=== PATIENT | female | born 1970 | race Caucasian/White ===

== ENCOUNTER → 2021-01-23 11:37 | Outpatient (CLI) | payer OTHER, SELFPAY ==
--- NOTE | ~2021-01-23 | XR_ITS ---
EXAMINATION: XR chest 2V DATE: 01/23/2021 12:04 INDICATION: Shortness of breath. Chest pain. TECHNIQUE: PA and lateral views of the chest were obtained. COMPARISON: Chest radiograph dated 02/09/2019 FINDINGS: Lungs remain hyperexpanded but clear with no focal airspace opacities, pulmonary edema, pleural effus ion or pneumothorax. The cardiomediastinal silhouette is normal. Bilateral breast implants. Mild thor acic spondylosis. IMPRESSION: 1. Appearance suggestive but not diagnostic of COPD. No acute cardiopulmonary disease. Reviewed, dictated and finalized at location B. [facility] IMPRESSION: 1. Appearance suggestive but not diagnostic of COPD. No acute cardiopulmonary d isease.
== END ==
PROVIDERS: PCP Family Medicine Adolescent Medicine; Visit Provider Physician Assistant
DX: R06.02 Shortness of breath (principal); R07.9 Chest pain, unspecified; R91.8 Other nonspecific abnormal finding of lung field
CPT/HCPCS: 71046

== ENCOUNTER → 2021-07-03 10:26 | Outpatient (CLI) | payer OTHER, SELFPAY ==
--- NOTE | ~2021-07-03 | MM_ITS ---
EXAMINATION: MM scrn jannet implant BI w jack HISTORY: Screening mammogram, family history of breast cancer in her mother. TECHNIQUE: Craniocaudal and mediolateral oblique 3-D tomosynthesis images with implant displacement a nd synthetic 2-D images were generated. Craniocaudal and mediolateral oblique views of the breasts wi thout implant displacement were obtained using full field digital mammography. CAD analysis was submi tted and interpreted. COMPARISON: 09/05/2018, 04/16/2016 BREAST PARENCHYMAL COMPOSITION: There are scattered areas of fibroglandular density. FINDINGS: There is no evidence of suspicious mass, calcification, or architectural distortion to sugg est malignancy in either breast. There has been no suspicious interval change. IMPRESSION: 1. No mammographic evidence of malignancy. 2. Recommend routine screening mammography in one year. BI-RADS Category 1: Negative Reviewed, dictated and finalized at location A.
== END ==
PROVIDERS: PCP Family Medicine Adolescent Medicine; Visit Provider Obstetrics & Gynecology
DX: Z12.31 Encounter for screening mammogram for malignant neoplasm of breast (principal)
CPT/HCPCS: 77063; 77067

== ENCOUNTER → 2021-12-30 10:39 | Outpatient (CLI) | payer OTHER, SELFPAY ==
--- NOTE | ~2021-12-30 | CT_ITS ---
EXAMINATION: CTA chest PE protocol DATE: 12/30/2021 11:02 INDICATION: Dyspnea on exertion. TECHNIQUE: Computed tomography angiography (CTA) of the chest was performed with 100 mL Omnipaque-350 intravenous contrast timed to evaluate the pulmonary arteries. Coronal maximum intensity projection 3D-reconstructions were created by the technologist. Automated exposure control and iterative reconst ruction technique were employed. The dose-length product was 149.01 mGy-cm. COMPARISON: Chest 2 views 01/23/2021 FINDINGS: There is severe emphysema. No pleural effusion. The heart size is normal. No pericardial ef fusion. There is no pulmonary embolus. Breast implants are noted. There is mild thoracic spondylosis. There is mild chronic anterior wedging of multiple midthoracic vertebral bodies. IMPRESSION: 1. No pulmonary embolus. 2. Severe emphysema. Reviewed, dictated and finalized at location A. 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
== END ==
PROVIDERS: PCP Family Medicine Adolescent Medicine; Visit Provider Physician Assistant
DX: R06.02 Shortness of breath (principal); J43.9 Emphysema, unspecified
CPT/HCPCS: 71275; Q9967

== ENCOUNTER 2023-08-27 10:10 | Outpatient (CLI) | payer OTHER, SELFPAY ==
--- NOTE | ~2023-08-27 | CT_ITS ---
CT Scan of the Chest without Contrast: Clinical Indication: COPD Technique: Contiguous sections were acquired throughout the chest without intravenous contrast. Dose reduction technique was used on this scan by utilizing automated exposure control and iterative recon struction technique. The dose-length product (DLP) was 63.13 mGy-cm. COMPARISON: 12/30/2021 Findings: There is no evidence of any significant mediastinal, hilar or axillary lymphadenopathy. The mediastin al soft tissues appear normal. There is no evidence of pleural or pericardial effusion. Advanced emphysema present. No pulmonary nodule or consolidation seen. No pneumothorax. Images through the upper abdomen reveal no abnormalities. Impression: Advanced emphysema. Reviewed, dictated and finalized at location . Impression: Advanced emphysema.
== END 2023-08-27 10:11 | disposition home or self-care (01) ==
LOC: ANHIMG 10:13
PROVIDERS: PCP Family Medicine Adolescent Medicine; Visit Provider Physician Assistant
DX: J43.9 Emphysema, unspecified (principal); Z87.09 Personal history of other diseases of the respiratory system
CPT/HCPCS: 71250

== ENCOUNTER 2024-01-07 12:44 | Outpatient (CLI) | payer OTHER, SELFPAY ==
--- NOTE | ~2024-01-07 | MM_ITS ---
EXAMINATION: MM scrn jannet implant BI w jack HISTORY: Screening mammogram, family history of breast cancer in her mother. TECHNIQUE: Craniocaudal and mediolateral oblique 3-D tomosynthesis images with implant displacement a nd synthetic 2-D images were generated. Craniocaudal and mediolateral oblique views of the breasts wi thout implant displacement were obtained using full field digital mammography. CAD analysis was submi tted and interpreted. COMPARISON: 07/03/2021, 09/05/2018 BREAST PARENCHYMAL COMPOSITION: There are scattered areas of fibroglandular density. FINDINGS: There is no evidence of suspicious mass, calcification, or architectural distortion to sugg est malignancy in either breast. There has been no suspicious interval change. IMPRESSION: No mammographic evidence of malignancy. Recommend routine screening mammography in one year. BI-RADS Category 1: Negative Reviewed, dictated and finalized at [facility]. 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
== END 2024-01-07 12:45 | disposition home or self-care (01) ==
LOC: MICIMG 12:44
PROVIDERS: PCP Family Medicine Adolescent Medicine; Visit Provider Nurse Practitioner Family
DX: Z12.31 Encounter for screening mammogram for malignant neoplasm of breast (principal)
CPT/HCPCS: 77063; 77067

== ENCOUNTER 2024-07-24 00:32 | Day surgery (SDC) | payer OTHER, SELFPAY ==
[2024-07-12 08:59] VITALS: BMI 21.3
--- OUTSIDE RECORDS SUMMARY | 2024-07-24 00:35 | XMS_ITS | Data Portability ---
Author Organization [facility] [place] Address [address] [place] [address] Care Team Providers Care Mortar Mixer Name Role Phone TRIXIE ABREU Primary Care Provider Assessment Encounter Date Assessment Date Assessment LastModified by Organization Details LastModified Time 12/01/2019 12/01/2019 Annual gynecological exam performed. Patient will come back in a year unless there are new symptoms. [email or web address] Not available 12/01/2019 10:12:47 12/13/2020 12/13/2020 healthy female exam/menopause patient declines std testing pap done- abnormal in 2017 mammogram orered and encouraged colonoscopy discussed cologuard only for low risk. Should prob have colonscopy next year. referral placed dexa basleine at 58 Encouraged weight bearing exercise and 1500mg daily of Calcium with Vitamin D fatigue- CMP CBC< TSH, A1C. Follow up with PCP. FU 1 year or prn [email or web address] Not available 12/13/2020 14:43:40 01/19/2022 01/19/2022 healthy female exam/menopause patient desires std testing pap done for abnormal 2016 mammogram due in June colonoscopy STRONGLY ENCOURAGED due to family history. referral placed. dexa baseline around 58. Encouraged weight bearing exercise and 1500mg daily of Calcium with Vitamin D encouraged tobacco cessation FU 1 year or prn [email or web address] Not available 01/19/2022 18:47:05 01/22/2023 01/22/2023 Annual gynecological exam performed. Patient will come back in a year unless there are new symptoms. Not available 01/22/2023 09:29:28 04/03/2024 04/03/2024 Annual gynecological exam performed. Patient will come back in a year unless there are new symptoms. [email or web address] Not available 04/03/2024 14:20:43 Plan of Treatment Reminders Order Date Submit Date Provider Last Modified By Organization Details Last Modified Time Details Appointments None recorded. Lab CBC w/ auto diff 2020 [facility] (Lab), [address], [place], [address], 02:45:58 CMP, serum or plasma 2020 [facility] (Lab), [address], [place], [address], 02:45:59 HbA1c (hemoglobin A1c), blood 2020 [facility] (Lab), [address], [place], [address], 02:46:00 TSH, serum or plasma 2020 [facility] (Lab), [address], [place], [address], 02:45:59 vitamin D, 25-hydroxy, total, serum 2020 [facility] (Lab), [address] [place], [address], 02:46:00 Referral gastroenter ologist referral 2024 025 [email or web address] 1 [facility], [address], [facility], [place], [address], 5 11:49:40 Procedures None recorded. Surgeries None recorded. Imaging MAMMO, screening, digital, bilateral 2022 023 [email or web address] Not available 4 05:01:05 Medication Orders varenicline tartrate 1 mg tablet 2020 [id number], [address], [place], [place], [id number], 3 09:32:14 Chantix Starting Month Box 0.5 mg (11)-1 mg (42) tablets in dose pack 2019 020 [email or web address] [facility] #[id number], [address], [place], [place], [id number], 1 12:03:10 Patient TargetsNo targets recorded. Patient InstructionsNo instructions recorded. Reason for Referral [employer] Referral for Screening for malignant neoplasm of colon Referring Physician: Cindy Hsu DRYWALL STRIPPER, Encounter Date: 04/03/2024 Results Created Date Observation Date Name Description Value Unit Range Abnormal Flag Note LastModifiedBy Organization Detail LastModifiedTime 12/01/19 20 12/04/2019 pap, LB Pap test thin prep Negati ve for Intrae pithel ial Lesion or Malign ramya normal ACCES DOTTY #: [id number] Sourc e: Cervi lety/E ndoce rvica l LMP: 02/15 Date Taken : 11/30 Speci men Type: ThinP rep Vial Date Repor ghanshyam: 12/03 Clini lety Data: Cytot ech: Nico Rubio y, CT( CP) Date Repor ghanshyam: 12/03 Speci men Adequ acy: Satis facto ry for evalu ation Endoc ervic al/tr ansfo rmati on zone compo nent prese nt Gener al Categ oriza tion: NEGAT MAYLIN FOR INTRA EPITH ELIAL LESIO N OR MALIG GRETCHEN This speci men has been valencia zed by the ThinP rep Imagi ng Syste m, an inter activ e compu ter syste m which lindsey ts the lab in the scree don of ThinP rep Pap Test slide s. Follo wing imagi ng, the slide was revie wed by a Cytot echno logis t and/o r Patho logis t. End of Repor t Techn ical servi norah provi ded by [facility], [address] [place] [address] Jasiel Prather MD, Labor atory Dire tor. Case revandrew wed and diagn osnoemy rende red at [facility], [facility], [address] [place] [address] Jasiel Prather MD, Labor atory Dire tor. CONFI DENTI AL Not Available [facility] ([facility]) [address], [place], [address], 12/04/2019 17:17:35 12/14/19 21 12/13/2020 CBC W/DIF F WBC 6.4 10'3/ uL 3.6-[address] [facility] (Lab) [address] , [place], [address], 12/14/2020 02:45:58 12/14/19 21 12/13/2020 CBC W/DIF F RBC 4.60 10'6/ uL (based on docume nted legal sex) 4.10-[address] [facility] (Lab) [address], [place], [address], 12/14/2020 02:45:58 12/14/19 21 12/13/2020 CBC W/DIF F HGB 14.2 g/dL (based on docume nted legal sex) 11.9-[address] [facility] (Lab) [address], [place], [address], 12/14/2020 02:45:58 12/14/19 21 12/13/2020 CBC W/DIF F HCT 44.8 % (based on docume nted legal sex) 37.4-[address] [facility] (Lab) [address], [place], [address], 12/14/2020 02:45:58 12/14/19 21 12/13/2020 CBC W/DIF F MCV 98.0 fL 82.0-[address] [facility] (Lab) [address], [place], [address], 12/14/2020 02:45:58 12/14/19 21 12/13/2020 CBC W/DIF F MCH 31.0 pg 27.0-[address] [facility] (Lab) [address], [place], [address], 12/14/2020 02:45:58 12/14/19 21 12/13/2020 CBC W/DIF F MCHC 32.0 g/dL 32.0-[address] [facility] (Lab) [address], [place], [address], 12/14/2020 02:45:58 12/14/1912/13/2020 CBC W/DIF F RDW 12.0 % 11.0-[address] [facility] (Lab) [address], [place], [address], 12/14/2020 02:45:58 12/14/19 21 12/13/2020 CBC W/DIF F plt 286 10'3/ uL 150-[address] [facility] (Lab) [address], [place], [address], 12/14/2020 02:45:58 12/14/19 21 12/13/2020 CBC W/DIF F MPV 10.3 fL 9.8-[address] [facility] (Lab) [address], [place], [address], 12/14/2020 02:45:58 12/14/19 21 12/13/2020 CBC W/DIF F NRBC's 0.00 % [address] [facility] (Lab) [address], [place], [address], 12/14/2020 02:45:58 12/14/19 21 12/13/2020 CBC W/DIF F absolute NRBCs 0.0 10'3/ uL [address] [facility] (Lab) [address], [place], [address], 12/14/2020 02:45:58 12/14/19 21 12/13/2020 CBC W/DIF F neutrophils 60.0 % 37.0-[address] [facility] (Lab) [address], [place], [address], 12/14/2020 02:45:58 12/14/19 21 12/13/2020 CBC W/DIF F lymphocytes 30.0 % 16.0-[address] [facility] (Lab) [address], [place], [address], 12/14/2020 02:45:58 12/14/19 21 12/13/2020 CBC W/DIF F monocytes 7.0 % 4.0-[address] [facility] (Lab) [address], [place], [address], 12/14/2020 02:45:58 12/14/19 21 12/13/2020 CBC W/DIF F eosinophils 2.0 % 0.0-9. [address] [facility] (Lab) [address], [place], [address], 12/14/2020 02:45:58 12/14/19 21 12/13/2020 CBC W/DIF F basophils 1.0 % 0.0-2. [address] [facility] (Lab) [address], [place], [address], 12/14/2020 02:45:58 12/14/19 21 12/13/2020 CBC W/DIF F immature granulocytes 0.0 % no define d refere nce range Not Available [facility] (Lab) [address], [place], [address], 12/14/2020 02:45:58 12/14/19 21 12/13/2020 CBC W/DIF F absolute neutrophils 3.8 10'3/ uL 1.1-6. [address] [facility] (Lab) [address], [place], [address], 12/14/2020 02:45:58 12/14/19 21 12/13/2020 CBC W/DIF F absolute lymphocytes 1.9 10'3/ uL 0.7-3. [address] [facility] (Lab) [address], [place], [address], 12/14/2020 02:45:58 12/14/19 21 12/13/2020 CBC W/DIF F absolute monocytes 0.5 10'3/ uL 0.3-1. [address] [facility] (Lab) [address], [place], [address], 12/14/2020 02:45:58 12/14/19 21 12/13/2020 CBC W/DIF F absolute eosinophils 0.1 10'3/ uL 0.0-0. [address] [facility] (Lab) [address], [place], [address], 12/14/2020 02:45:58 12/14/19 21 12/13/2020 CBC W/DIF F absolute basophils 0.1 10'3/ uL 0.0-0. [address] [facility] (Lab) [address], [place], [address], 12/14/2020 02:45:58 12/14/19 21 12/13/2020 CBC W/DIF F absolute immature granulocytes 0.00 10'3/ uL 0.00-0 .10 12/14 12:20 AM: P indic ates parti al resul ts on a panel have been relea sed. Addit ional resul ts will follo w. 12/14 12:20 AM: This resul t has been final verif ied. No addit ional or quezada ed resul ts are expec ghanshyam. Not Available [facility] (Lab) [address], [place], [address], 12/14/2020 02:45:58 12/14/19 21 12/13/2020 CMP(C OMPRE HENSI VE METAB OLIC PANEL ) sodium 140 mmol/ L 133-[address] [facility] (Lab) [address], [place], [address], 12/14/2020 02:45:59 12/14/19 21 12/13/2020 CMP(C OMPRE HENSI VE METAB OLIC PANEL ) potassium 4.9 mmol/ L 3.5-5. [address] [facility] (Lab) [address], [place], [address], 12/14/2020 02:45:59 12/14/19 21 12/13/2020 CMP(C OMPRE HENSI VE METAB OLIC PANEL ) chloride 104 mmol/ L 98-[address] [facility] (Lab) [address], [place], [address], 12/14/2020 02:45:59 12/14/19 21 12/13/2020 CMP(C OMPRE HENSI VE METAB OLIC PANEL ) carbon dioxide 29 mmol/ L 21-[address] [facility] (Lab) [address], [place], [address], 12/14/2020 02:45:59 12/14/19 21 12/13/2020 CMP(C OMPRE HENSI VE METAB OLIC PANEL ) anion gap 7 mmol/ L 4-[address] [facility] (Lab) [address] [place], [address], 12/14/2020 02:45:59 12/14/19 21 12/13/2020 CMP(C OMPRE HENSI VE METAB OLIC PANEL ) blood urea nitrogen 8 mg/dL 7-25 Not Available [facility] (Lab) [address] [place], [address], 12/14/2020 02:45:59 12/14/19 21 12/13/2020 CMP(C OMPRE HENSI VE METAB OLIC PANEL ) creatinine 0.74 mg/dL 0.60-[address] [facility] (Lab) [address], [place], [address], 12/14/2020 02:45:59 12/14/19 21 12/13/2020 CMP(C OMPRE HENSI VE METAB OLIC PANEL ) GFR () 100 mL/mi n/1.7 3_m2 60-[address] [facility] (Lab) [address], [place], [address], 12/14/2020 02:45:59 12/14/19 21 12/13/2020 CMP(C OMPRE HENSI VE METAB OLIC PANEL ) GFR (others) 82 mL/mi n/1.7 3_m2 60-[address] [facility] (Lab) [address], [place], [address], 12/14/2020 02:45:59 12/14/19 21 12/13/2020 CMP(C OMPRE HENSI VE METAB OLIC PANEL ) calcium 9.6 mg/dL 8.3-[address] [facility] (Lab) [address], [place], [address], 12/14/2020 02:45:59 12/14/19 21 12/13/2020 CMP(C OMPRE HENSI VE METAB OLIC PANEL ) glucose 80 mg/dL 70-[address] [facility] (Lab) [address], [place], [address], 12/14/2020 02:45:59 12/14/19 21 12/13/2020 CMP(C OMPRE HENSI VE METAB OLIC PANEL ) protein, total 7.0 g/dL 6.4-8. [address] [facility] (Lab) [address], [place], [address], 12/14/2020 02:45:59 12/14/19 21 12/13/2020 CMP(C OMPRE HENSI VE METAB OLIC PANEL ) albumin 4.5 g/dL 3.5-5. [address] [facility] (Lab) [address], [place], [address], 12/14/2020 02:45:59 12/14/19 21 12/13/2020 CMP(C OMPRE HENSI VE METAB OLIC PANEL ) ALT 8 units /L 9-[address] [facility] (Lab) [address], [place], [address], 12/14/2020 02:45:59 12/14/19 21 12/13/2020 CMP(C OMPRE HENSI VE METAB OLIC PANEL ) alkaline phosphatase 108 units /L 34-[address] [facility] (Lab) [address], [place], [address], 12/14/2020 02:45:59 12/14/19 21 12/13/2020 CMP(C OMPRE HENSI VE METAB OLIC PANEL ) AST 13 units /L 13-[address] [facility] (Lab) [address], [place], [address], 12/14/2020 02:45:59 12/14/19 21 12/13/2020 CMP(C OMPRE HENSI VE METAB OLIC PANEL ) bilirubin, total 0.7 mg/dL 0.2-1. 2 GFR([place] f[place] n Ameri can) is repor ghanshyam as 21% great er than GFR(O ther) . The use of race in kidne y funct ion estim ating equat ions is no longe r recom kj d and may resul t in overe stima tion. In the near futur e an appro ach that disre gards race will be imple mente d. Not Available [facility] (Lab) [address], [place], [address], 12/14/2020 02:45:59 12/14/19 21 12/13/2020 TSH, REFLE X FREE T4 TSH 0.73 uIU/m L 0.30-[address] [facility] (Lab) [address], [place], [address], 12/14/2020 02:45:59 12/14/19 21 12/13/2020 VITAM IN D, 25-OH (TOTA L D2/D3 ) vitamin D, 25-hydroxy, total 27.3 NG/mL 30-80 low NOTE: Defic iency : <20 ng/mL Insuf ficie ncy: 20-29 ng/mL Optim um Level : 30-80 ng/mL Possi ble Toxic ity: >80 ng/mL Most patie nts with toxic ity have level s >150 ng/mL . Not Available [facility] (Lab) [address], [place], [address], 12/14/2020 02:46:00 12/14/19 21 12/13/2020 HEMOG LOBIN A1C hemoglobin A1C 5.4 % 0-5.6 The Ameri can [employer] [facility] [employer] iatio n recom mends that a prima ry goal of thera py shoul d be a HBA1C of < 7% and that physi cians shoul d reeva luate the treat ment regim en in patie nts with HBA1C value s consi stent ly > 8%. <5.7% Haven l 5.7 - 6.4% Incre ased risk for diabe daniel >=6.5 % Diagn ostic of diabe daniel <7.0% Goal of thera py >8.0% Actio n sugge sted Not Available [facility] (Lab) [address], [place], [address], 12/14/2020 02:46:00 12/14/19 21 12/13/2020 IMAGE GUIDE D PAP AND HPV REGAR DLESS image guided Pap, HPV regardless of Pap result SEE RESULT S BELOW CASE REPOR T: Cytol ogy Gynec ologi lety Repor t Case: [id number] Autho frederick schaffer Provi veronica: Diamond Gibbs MD Colle cted: 12/13 1201 Order ing Locat ion: [place] Patho logy Recei mary: 12/14 0011 First Scree n: Erica Reeves ret, CT Speci men: Scree don Pap - Image d, Cervi x STATE MENT OF ADEQU ACY: Satis facto ry for evalu ation Trans forma tion zone compo nent prese nt FINAL DIAGN OSIS: Negat maylin for Intra epith elial Lesio n or Robert salvador (NIL) . Elect stacy glez sue d by Erica Reeves ret, CT on 2020 at 5:24 AM ----- ----- ----- ----- ----- ----- ----- ----- ----- ----- ----- ----- ----- ----- ----- ----- ----- ---- HPV RESUL TS: HPV mRNA E6/E7 : No HPV mRNA Detec ghanshyam NOTE: This high risk HPV mRNA assay detec ts fourt een high- risk HPV types (16, 18, 31, 33, 35, 39, 45, 51, 52, 56, 58, 59, 66, 68) witho ut diffe renti ation . COMME NT: Note: This speci men was revie wed by a Cytot echno logis t and/o r Patho logis t (as indic ated in this repor t) after evalu ation using the Thinp rep Imagi ng Syste m. CLINI LETY INFOR MATIO N: Menst rual Statu s: LMP (if appli cable ): Clini lety Histo ry/Pr eviou s Pap: Type of Neopl jorgito (if appli cable ): Signi fican t Clini lety Findi ngs: Other Histo ry: Hormo fariba (if appli cable ): PAP EDUCA AMINA L NOTE: The Pap Test is a scree don test with an inher ent false negat maylin rate. Liqui d-bas e sampl ing may decre ase, but will not elimi niels, false negat maylin resul ts. A negat maylin resul t does not precl ude the prese nce and/o r devel opmen t of disea se, since the prese nce of abnor mal cells in the sampl e depen ds on the locat ion of the lesio n and sampl ing techn ique. Martin nued regul ar scree don is the best metho d of cance r preve ntion . If repor ghanshyam cytol ogic findi ng do not corre late with physi lety and/o r histo rical findi ngs, furth er inves tigat ion is recom kj d, as clini christin barbosa nted. Not Available [facility] (Lab) [address], [place], [address], 12/21/2020 06:26:56 01/20/20 22 01/19/2022 IMAGE GUIDE D PAP AND HPV REGAR DLESS image guided Pap, HPV regardless of Pap result SEE RESULT S BELOW CASE REPOR T: Cytol ogy Gynec ologi lety Repor t Case: [id number] Autho frederick g Provi veronica: Diamond Gibbs MD Colle cted: 01/19 1623 Order ing Locat ion: [place] Patho [place] Recei mary: 01/20 0926 First Scree n: Cheyenne Sauceda , CT Speci men: Scree don Pap - Image d, Cervi x STATE MENT OF ADEQU ACY: Satis facto ry for evalu ation Trans forma tion zone compo nent prese nt FINAL DIAGN OSIS: Negat maylin for Intra epith elial Lesio n or Robert salvador (NIL) . Atrop hy prese nt. Elect stacy rogers d by Cheyenne Sauceda , CT on 2021 at 7:25 AM ----- ----- ----- ----- ----- ----- ----- ----- ----- ----- ----- ----- ----- ----- ----- ----- ----- ---- HPV RESUL TS: HPV mRNA E6/E7 : No HPV mRNA Detec ghanshyam NOTE: This high risk HPV mRNA assay detec ts fourt een high- risk HPV types (16, 18, 31, 33, 35, 39, 45, 51, 52, 56, 58, 59, 66, 68) witho ut diffe renti ation . COMME NT: Note: This speci men was revie wed by a Cytot echno logis t and/o r Patho logis t (as indic ated in this repor t) after evalu ation using the Thinp rep Imagi ng Syste m. CLINI LETY INFOR MATIO N: Menst rual Statu s: LMP (if appli cable ): Clini lety Histo ry/Pr eviou s Pap: Type of Neopl jorgito (if appli cable ): Signi fican t Clini lety Findi ngs: Other Histo ry: Hormo fariba (if appli cable ): PAP EDUCA AMINA L NOTE: The Pap Test is a scree don test with an inher ent false negat maylin rate. Liqui d-bas ed sampl ing may decre ase, but will not elimi niels, false negat maylin resul ts. A negat maylin resul t does not precl ude the prese nce and/o r devel opmen t of disea se, since the prese nce of abnor mal cells in the sampl e depen ds on the locat ion of the lesio n and sampl ing techn ique. Martin nued regul ar scree don is the best metho d of cance r preve ntion . If repor ghanshyam cytol ogic findi ng do not corre late with physi lety and/o r histo rical findi ngs, furth er inves tigat ion is recom kj d, as clini christin barbosa nted. Not Available [facility] (Lab) [address], [place], [address], 01/21/2022 12:03:13 01/20/20 22 01/19/2022 TRICH OMONA S VAGIN JONATHAN (RRNA ) trichomonas vaginalis ribosomal RNA (rrna) Negati ve negati ve Not Available [facility] (Lab) [address], [place], [address], 01/21/2022 12:03:14 01/20/20 22 01/19/2022 CT/GC (LUCRECIA) , THINP REP VIAL chlamydia trachomatis, PCR Negati ve negati ve Not Available [facility] (Lab) [address], [place], [address], 01/21/2022 12:03:14 01/20/20 22 01/19/2022 CT/GC (LUCRECIA) , THINP REP VIAL neisseria gonorrhoeae, PCR Negati ve negati ve Not Available [facility] (Lab) [address], [place], [address], 01/21/2022 12:03:14 01/23/20 23 01/22/2023 IMAGE GUIDE D PAP AND HPV REGAR DLESS image guided Pap, HPV regardless of Pap result SEE RESULT S BELOW CASE REPOR T: Cytol ogy Gynec ologi lety Repor t Case: [id number] Autho frederick g Provi veronica: Cindy Hsu, SANDY Colle cted: 01/22 0954 Order ing Locat ion: [place] Patho [place]y Recei mary: 01/25 0650 First Scree n: Reji Sands am, CT Speci men: Scree don Pap - Image d, Cervi x STATE MENT OF ADEQU ACY: Satis facto ry for evalu ation Trans forma tion zone compo nent prese nt FINAL DIAGN OSIS: Negat maylin for Intra epith elial Lesio n or Robert salvador (NIL) . Atrop hic cell jaylon gore. Evette tesfaey by Reji Sands am, CT on 01/27 at 10:27 AM ----- ----- ----- ----- ----- ----- ----- ----- ----- ----- ----- ----- ----- ----- ----- ----- ----- ---- HPV RESUL TS: HPV mRNA E6/E7 : No HPV mRNA Detec ghanshyam NOTE: This high risk HPV mRNA assay detec ts fourt een high- risk HPV types (16, 18, 31, 33, 35, 39, 45, 51, 52, 56, 58, 59, 66, 68) witho ut diffe renti ation . COMME NT: This speci men was revie wed by a Cytot echno logis t and/o r Patho logis t (as indic ated in this repor t) after evalu ation using the Thinp rep Imagi ng Syste m. CLINI LETY INFOR MATIO N: Menst rual Statu s: LMP (if appli cable ): Clini lety Histo ry/Pr eviou s Pap: Type of Neopl jorgito (if appli cable ): Signi fican t Clini lety Findi ngs: Other Histo ry: Hormo fariba (if appli cable ): PAP EDUCA AMINA L NOTE: The Pap Test is a scree don test with an inher ent false negat maylin rate. Liqui d-bas ed sampl ing may decre ase, but will not elimi niels, false negat maylin resul ts. A negat maylin resul t does not precl ude the prese nce and/o r devel opmen t of disea se, since the prese nce of abnor mal cells in the sampl e depen ds on the locat ion of the lesio n and sampl ing techn ique. Martin nued regul ar scree don is the best metho d of cance r preve ntion . If repor ghanshyam cytol ogic findi ng do not corre late with physi lety and/o r histo rical findi ngs, furth er inves tigat ion is recom kj d, as clini christin barbosa nted. Not Available [facility] (Lab) [address], [place], [address], 01/27/2023 11:30:47 04/03/19 25 04/03/2024 IMAGE GUIDE D PAP AND HPV REGAR DLESS image guided Pap, HPV regardless of Pap result SEE RESULT S BELOW CASE REPOR T: Cytol ogy Gynec ologi lety Repor t Case: [id number] Autho frederick schaffer Provi veronica: Cindy Hsu, SANDY Orozco cted: 04/03 1437 Order ing Locat ion: [place] Patho [place]y Recei mary: 04/04 0150 First Meghae n: Nisha Watkins, CT Speci men: Yonathan ochoa Pap - Image d, Cervi x STATE MENT OF ADEQU ACY: Satis facto ry for evalu ation Trans forma tion zone compo nent prese nt ----- ----- ----- ----- ----- ----- ----- ----- ----- ----- ----- ----- ----- ----- ----- ----- ----- ---- FINAL DIAGN OSIS: Negat maylin for Intra epith elial Giovanna brown or Robert salvador (NIL) . Atrop hy prese nt. Elect stacy rogers d by Nisha mcaky, CT on 2024 at 1215 BIGHT MAKER ----- ----- ----- ----- ----- ----- ----- ----- ----- ----- ----- ----- ----- ----- ----- ----- ----- ---- HPV RESUL TS: HPV mRNA E6/E7 : No HPV mRNA Detec ghanshyam NOTE: This high risk HPV mRNA assay detec ts fourt een high- risk HPV types (16, 18, 31, 33, 35, 39, 45, 51, 52, 56, 58, 59, 66, 68) witho ut diffe renti ation . COMME NT: This speci men was revie wed by a Cytot echno logis t and/o r Patho logis t (as indic ated in this repor t) after evalu ation using the Thinp rep Imagi ng Syste m. CLINI LETY INFOR MATIO N: Menst rual Statu s: LMP (if appli cable ): Clini lety Histo ry/Pr eviou s Pap: Type of Neopl jorgito (if appli cable ): Signi fican t Clini lety Findi ngs: Other Histo ry: Hormo fariba (if appli cable ): PAP EDUCA AMINA L NOTE: The Pap Test is a scree don test with an inher ent false negat maylin rate. Liqui d-bas ed sampl ing may decre ase, but will not elimi niels, false negat maylin resul ts. A negat maylin resul t does not precl ude the prese nce and/o r devel opmen t of disea se, since the prese nce of abnor mal cells in the sampl e depen ds on the locat ion of the lesio n and sampl ing techn ique. Martin nued regul ar scree don is the best metho d of cance r preve ntion . If repor ghanshyam cytol ogic findi ng do not corre late with physi lety and/o r histo rical findi ngs, furth er inves tigat ion is recom kj d, as clini christin barbosa nted. Not Available [facility] (Lab) [address], [place], [address], 04/05/2024 13:18:40 07/04/19 22 07/03/2021 imagi ng/di agnos tic resul t No observ ation record ed. [facility] [address], [place], [address], 12/26/2021 14:18:00 Result Notes None recorded. Problems Name Problem SNOMED Code Status Onset Date Resolution Date Notes Provider Name and Address Organization Details Recorded Time Postmeno pausal bleeding 87683187 Completed 201312/13/2020 Postmeno pausal bleeding ;Recorde d Elsewher e: No Locat ion: [facility] S ource: EHR Delivery Consultant anahy: N Practi ce ID: 0001 Tiago lable Time: 10:15:00 AM Diamond Caba MD [address], [place], [address], [facility] 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 12:16:17 Low grade squamous intraepi thelial lesion on cervical Papanico laou smear [id number] 9105 Completed 201612/13/2020 Low grade intrepit h lesion cyto smr crvx (LGSIL); Recorded Elsewher e: No Locat ion: [facility] S ource: EHR Delivery Consultant anahy: N Cathi ce ID: 0001 Tiago lable Time: 06:15:00 PM Diamond Caba MD [address], [place], [address], [facility] 12:16:01 Amenorrh ea 64135285 Completed 201012/13/2020 Absence of menstrua tion;Rec orded Elsewher e: No Locat ion: [facility] S ource: EHR Delivery Consultant anahy: N Cathi ce ID: 0001 Tiago lable Time: 03:00:00 PM Diamond Caba MD [address], [place], [address], [facility] 12:15:13 Screenin g for malignan t neoplasm of cervix Completed 201012/13/2020 Screenin g for malignan t neoplasm s of the cervix;R ecorded Elsewher e: No Locat ion: [facility] S ource: EHR Delivery Consultant anahy: N Cathi ce ID: 0001 Tiago lable Time: 03:00:00 PM Diamond Caba MD [address], [place], [address], [facility] 12:16:12 Atypical squamous cells of undeterm ined signific ance on anal Papanico laou smear [id number] Completed 201612/13/2020 Atyp squam cell of undet signfc cyto smr anus (ASC-US) ;Recorde d Elsewher e: No Locat ion: [facility] S ource: EHR Delivery Consultant anahy: N Cathi ce ID: 0001 Tiago lable Time: 06:15:00 PM Diamond Caba MD [address], [place], [address], [facility] 12:15:15 Substan e abuse counseli ng Completed 201612/13/2020 Tobacco abuse counseli ng;Recor ded Elsewher e: No Locat ion: [facility] S ource: EHR Delivery Consultant anahy: N Cathi ce ID: 0001 Tiago lable Time: 04:30:00 PM Diamond Caba MD [address], [place], [address], [facility] 12:16:22 Human papillom avirus deoxyrib onucleic acid detected , high risk on cervical specimen [id number] Completed 201612/13/2020 Cervical high risk human papillom avirus (HPV) DNA test positive ;Recorde d Elsewher e: No Locat ion: [facility] S ource: EHR Delivery Consultant anahy: N Cathi ce ID: 0001 Tiago lable Time: 03:30:00 PM Diamond Caba MD [address], [place], [address], [facility] 12:15:30 Pregnanc y test negative [id number] Completed 201612/13/2020 Encounte r for pregnanc y test, result negative ;Recorde d Elsewher e: No Locat ion: [facility] S ource: EHR Delivery Consultant anahy: N Practi ce ID: 0001 Tiago lable Time: 06:15:00 PM Diamond Caba MD [address], [place], [address], [facility] 1 12:16:10 Screenin g for malignan t neoplasm of rectum Completed 201412/13/2020 Encounte r for screenin g for malignan t neoplasm of rectum;R ecorded Elsewher e: No Locat ion: [facility] S ource: EHR Delivery Consultant anahy: N Practi ce ID: 0001 Tiago lable Time: 03:30:00 PM Diamond Caba MD [address], [place], [address], [facility] 12:16:14 Speciali zed medical examinat ion Completed 201012/13/2020 Routine gynecolo gical examinat ion;Prac esperanza ID: 0001 Diamond Caba MD [address], [place], [address], [facility] 1 12:16:20 Cyst of ovary 80629200 Completed 201312/13/2020 OVARIAN CYST;Pra ctice ID: 0001 Diamond Caba MD [address], [place], [address], [facility] 12:15:25 Adult health examinat ion Completed 201312/13/2020 Routine general medical examinat ion at a health care facility ;Practic e ID: 0001 Diamond Caba MD [address], [place], [address], [facility] 12:15:05 Irregula r intermen strual bleeding 36613407 Completed 201312/13/2020 Metrorrh agia;Pra ctice ID: 0001 Diamond Caba MD [address], [place], [address], [facility] 12:16:03 Postoper ative follow-u p visit Completed 201312/13/2020 Follow Up Surgery; Practice ID: 0001 Diamond Caba MD [address], [place], [address], [facility] 12:16:07 Abnormal cervical Papanico laou smear with human papillom avirus deoxyrib onucleic acid detected 374289150 Completed 201412/13/2020 Cervical high risk human papillom avirus (HPV) DNA test positive ;Practic e ID: 0001 Diamond Caba MD [address], [place], [address], [facility] 12:15:02 Evaluati on finding Completed 201512/13/2020 Unsp abnormal cytolog findings in specmn from cervix uteri;Pr actice ID: [address], [place], [address], [facility] 12:15:28 Low risk human papillom avirus deoxyrib onucleic acid detected in specimen from cervix [id number] Completed 201612/13/2020 Cervical low risk HPV DNA test positive ;Practic e ID: [address], [place], [address], [facility] 12:15:33 Atypical squamous cells of undeterm ined signific ance on cervical Papanico laou smear 255025580 Completed 201712/13/2020 Atyp squam cell of undet signfc cyto smr crvx (ASC-US) ;Practic e ID: 0001 Diamond Caba MD [address], [place], [address], [facility] 1 12:15:[address] Concept Completed 201812/13/2020 Encntr for general adult medical exam w/o abnormal findings ;Practic e ID: 0001 Diamond Caba MD [address], [place], [address], [facility] 12:16:16 Condylom a acuminat um of the anogenit al region [id number] Completed 201312/13/2020 Condylom a acuminat um;Recor ded Elsewher e: No Locat ion: [facility] S ource: EHR Delivery Consultant anahy: N Practi ce ID: 0001 Tiago lable Time: 02:56:51 PM Diamond Caba MD [address], [place], [address], [facility] 12:15:21 Tobacco user 316655455 Active 2020 Diamond Caba MD [address], [place], [address], [facility] 12:27:37 Family history of cancer of colon 599304823 Active 2020 Diamond Caba MD [address], [place], [address], [facility] 1 12:28:52 Chronic obstruct maylin pulmonar y disease 64891785 Active 2021 Diamond Caba MD [address], [place], [address], [facility] 2 18:46:59 Problem Notes None recorded. Procedures Surgical History Date Name Laterality Status Provider Name and Address Organization Details Recorded Time 3 Date of Last Pap Smear completed BELINDA De La Torre [facility] 04/03/2024 14:27:00 9 Date of Last Mammogram completed BELINDA De La Torre [facility] 04/03/2024 14:25:32 Breast Implants completed [facility] 11/30/2019 15:17:49 Tubal Ligation completed [facility] 11/30/2019 15:18:00 Imaging Results None recorded. Procedure Notes None recorded. Medical Equipment None Reported. Allergies No known drug allergies Medications Name Sig Start Date Stop Date Status Note LastModified by Organization Details LastModified Time Prometriu m 200 mg capsule take 1 capsule (200MG) by oral route every day for 12 days 04/01 completed Prescrib ed Elsewher e: No Locat ion: [facility] M odify By: [facility] er DateTime : 03/21/19 13 11:28:42 AM Not Available Not Available Not Available nystatin 100,000 unit/mL oral suspensio n SWISH AND SPIT 5 ML BY MOUTH FOUR TIMES DAILY FOR 10 DAYS 01/22 completed Not Available Not Available Not Available prednison e 10 mg tablet 01/22 completed Not Available Not Available Not Available azithromy cornelius 250 mg tablet TAKE 2 TABLETS BY MOUTH FOR 1 DAY THEN TAKE 1 TABLET BY MOUTH DAILY FOR 4 DAYS 04/03 completed Not Available Not Available Not Available prednison e 20 mg tablet 12/13 completed Not Available Not Available Not Available Celebrex 200 mg capsule 200mg po the night before and 400mg po morning of the procedur e 01/15 completed Prescrib ed Elsewher e: No Locat ion: [facility] M odify By: nitesh seth DateTime : 01/05/20 14 11:29:58 AM Not Available Not Available Not Available alprazola m 0.25 mg tablet TAKE 1 TABLET BY MOUTH ONCE DAILY NEEDED active Not Available Not Available No t Available Metrogel Vaginal 0.75 % (37.5 mg/5 gram) insert 1 applicat orful by vaginal route every day at bedtime 04/09 completed Prescrib ed Elsewher e: No Locat ion: [facility] odify By: [email or web address] seth DateTime : 03/05/19 17 06:15:00 PM Not Available Not Available Not Available monteluka st 10 mg tablet TAKE 1 TABLET BY MOUTH EVERY DAY 01/22 completed Not Available Not Available Not Available furosemid e 20 mg tablet TAKE 1 TABLET BY MOUTH EVERY DAY IN THE MORNING NEEDED FOR EDEMA active Not Available Not Available No t Available ergocalci ferol (vitamin D2) 1,250 mcg (50,000 unit) capsule Take 1 capsule every week by oral route. 01/22 completed Not Available Not Available Not Available diazepam 10 mg tablet po 1-2 hours before the procedur e 01/15 completed Prescrib ed Elsewher e: No Locat ion: [facility] odify By: nitesh seth DateTime : 01/05/20 14 11:29:58 AM Not Available Not Available Not Available methylpre dnisolone 4 mg tablets in a dose pack TAKE 6 TABLETS ON DAY 1 DIRECTED ON PACKAGE AND DECREASE BY 1 TAB EACH DAY FOR A TOTAL OF 6 DAYS active Not Available Not Available No t Available albuterol sulfate HFA 90 mcg/actua tion aerosol inhaler INHALE 2 PUFFS BY MOUTH EVERY 4 TO 6 HOURS NEEDED FOR WHEEZING OR SHORTNES S OF BREATH active Not Available Not Available No t Available Atrovent HFA 17 mcg/actua tion aerosol inhaler INHALE 2 PUFFS BY MOUTH FOUR TIMES DAILY 01/19 completed Not Available Not Available Not Available varenicli ne tartrate 1 mg tablet Take 1 tablet twice a day by oral route. 01/22 completed Not Available Not Available Not Available ProChambe r USE DIRECTED 01/19 completed Not Available Not Available Not Available Chantix Starting Month Box 0.5 mg (11)-1 mg (42) tablets in dose pack Take per directio ns on the box 12/13 completed Not Available Not Available Not Available Vicodin 5 mg-300 mg tablet 2 tabs po 2 hours before the procedur e 11/20/ 2014 12/01 /2014 completed Prescrib ed Elsewher e: No Locat ion: [facility] woo By: nitesh seth DateTime : 01/05/20 14 11:29:58 AM Not Available Not Available Not Available Treleeva Ellipta 100 mcg-62.5 mcg-25 mcg powder for inhalatio n USE 1 INHALATI ON ORALLY DAILY , RINSE MOUTH AND SPIT AFTER EACH USE active Not Available Not Available No t Available Vitals Date Recorded Body height Body mass index (BMI) Body weight Systolic blood pressure Diastolic blood pressure Provider Name and Address Organization Details Last Updated DateTime 04/03/2024 165.1 cm 21.5 kg/m2 00660.42 g 120 mm[Hg] 78 mm[Hg] BELINDA De La Torre [facility] 5 14:25:21 Date Recorded Body weight Body mass index (BMI) Body height Systolic blood pressure Diastolic blood pressure Provider Name and Address Organization Details Last Updated DateTime 12/01/2019 45908.05 g 20.8 kg/m2 165.1 cm 108 mm[Hg] 73 mm[Hg] Bhavya Melina [facility] 0 10:13:12 Date Recorded Body height Body mass index (BMI) Body weight Systolic blood pressure Diastolic blood pressure Provider Name and Address Organization Details Last Updated DateTime 12/13/2020 165.1 cm 19.1 kg/m2 28561.12 g 115 mm[Hg] 79 mm[Hg] [facility] 1 12:03:08 Date Recorded Body height Body mass index (BMI) Body weight Systolic blood pressure Diastolic blood pressure Provider Name and Address Organization Details Last Updated DateTime 01/19/2022 165.1 cm 19.5 kg/m2 04140.31 g 100 mm[Hg] 66 mm[Hg] [facility] 2 15:32:20 Date Recorded Body weight Systolic blood pressure Diastolic blood pressure Provider Name and Address Organization Details Last Updated DateTime 01/22/2023 29426.03 g 95 mm[Hg] 61 mm[Hg] Tamika Wells [facility] 01/22/2023 09:31:27 Social History Question Answer Notes LastModified by Organizat ion Details LastModified Time Tobacco Smoking Status Current Some Day Smoker Tamika Wells [facility] 01/22/2023 09:34:18 Do You Have An Advance Directive? No [email or web address] Information n ot available 04/03/2024 How Many Years Have You Consumed Alcohol? 30 [email or web address] Information not available 04/03/2024 Are You Blind Or Do You Have Difficulty Seeing? No Information n ot available 01/22/2023 What Is Your Level Of Caffeine Consumption? Moderate [email or web address] Information not available 04/03/2024 How Much Tobacco Do You Chew? None Information not available 04/03/2024 In The 14 Days Before Symptom Onset, Have You Had Close Contact With A Laboratory-confirm ed COVID-19 While That Case Was Ill? No [email or web address] Information n ot available 04/03/2024 In The 14 Days Before Symptom Onset, Have You Had Close Contact With A Person Who Is Under Investigation For COVID-19 While That Person Was Ill? No [email or web address] Information not available 04/03/2024 Have You Been To An Area Known To Be High Risk For COVID-19? No [email or web address] Information not available 04/03/2024 Are You Deaf Or Do You Have Serious Difficulty Hearing? No Information not available 01/22/2023 What Type Of Diet Are You Following? REGULAR Information n ot available 04/03/2024 What Is The Highest Grade Or Level Of School You Have Completed Or The Highest Degree You Have Received? [id number] [email or web address] Information not available 04/03/2024 Are There Any Guns Present In Your Home? No [email or web address] Information not available 04/03/2024 Do You Use Protection During Sex? No Information not available 04/03/2024 Do You Use Your Seat Belt Or Car Seat Routinely? Yes [email or web address] Information not available 04/03/2024 Do You Have Smoke And Carbon Monoxide Detectors In Your Home? Yes [email or web address] Information not available 04/03/2024 At What Age Did You Start Smoking Tobacco? 16 [email or web address] Information not available 04/03/2024 How Much Tobacco Do You Smoke? 1 PPD [email or web address] Information not available 04/03/2024 Do You Use Sunscreen Routinely? No [email or web address] Information not available 04/03/2024 How Many Years Have You Smoked Tobacco? 35 [email or web address] Information not available 04/03/2024 Have You Used IV Drugs? No [email or web address] Information not available 04/03/2024 Do You Have Difficulty Walking Or Climbing Stairs? No Information not available 01/22/2023 Sex: Unknown Functional Status Question Answer Note LastModified by Organizat ion Details LastModified Time Do you use any illicit or recreational drugs? No [email or web address] Information not available 04/03/2024 What is your level of alcohol consumption? Moderate [email or web address] Information not available 04/03/2024 Are you able to walk? [email or web address] Information not available 01/22/2023 Are you able to care for yourself? 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 No Information not available 01/22/2023 What is your exercise level? Moderate [email or web address] Information not available 04/03/2024 Mental Status Question Answer Note LastModified by Organization D etails LastModified Time Do you feel stressed (tense, restless, nervous, or anxious, or unable to sleep at night)? [id number] Information not available 04/03/2024 Family History Relationship Description Onset Age of this Age Resolved Age Notes LastModified by Organization Details LastModified Time Maternal Uncle Diabetes mellitus [email or web address] Not available 2019 15:09:51 Maternal Grandmother Malignant tumor of colon [email or web address] Not available 2019 15:10:24 Maternal Grandmother Diabetes mellitus [email or web address] Not available 2019 15:11:03 Paternal Grandmother Malignant tumor of colon [email or web address] Not available 2019 15:10:24 Paternal Grandmother Malignant tumor of breast [email or web address] Not available 2019 15:10:47 Paternal Grandfather Malignant neoplasm of lung [email or web address] Not available 2019 15:11:32 Paternal Aunt Malignant neoplasm of brain [email or web address] Not available 2024 14:10:09 Father Carcinoma of prostate [email or web address] Not available 2024 14:10:09 Notes:Close relative: Cancer , breast Father: Cancer, prostate Maternal grandmother: Diabetes mellitus, Cancer, colon Maternal uncle: Diabetes mellitus Paternal aunt: Brain Cancer Paternal grandfather: Cancer, lung Paternal grandmother: Cancer, colon, Cancer, breast Medical History Condition Response Allergies (Food, seasonal, environmental ) N Other N Breast Cancer N Drug/Latex Allergies/Reactions N Blood Transfusion N Dermatologic Disorders N Lung Disease N Defects or Inherited Disease N Breast Problem N Gestational Diabetes N Hematologic disorders N Anesthesia Complications N History of STI N Deep Vein Thrombosis N Polycystic ovary syndrome N Anxiety Disorder N Autoimmune disease N Arthritis N Infertility N Polyps N Acid Reflux (GERD) N History of abnormal pap N Cancer N Stroke N Varicosities N Neurologic/Epilepsy N Endometriosis N High Cholesterol N Headaches N Fibromyalgia N Kidney Disease N Heart Problems N Kidney or Bladder Problems N Thyroid Problems N GI Problems N Eating Disorder N Anemia N Art (IVF or FET) N Psychiatric Illness N Ovarian Cancer N Diabetes N Pulmonary (TB, Asthma) N Hepatitis/Liver Disease N No Past Medical History N Eczema N Urinary Tract Infection N Abuse/Domestic Violence N Asthma Y Trauma/Violence N Depression/ depression N Heart Disease N Pre-Eclampsia N Hypertension N Osteoporosis N Thrombophilias N Gynecological History Statement/Question Response Date of Last Mammogram 08/04/2018 Date of LMP 01/09/2021 N Was last menstrual period normal N STIs/STDs N HPV Vaccine N Current Control Method Tubal Ligat ion Age at First Child 28 If Post Menopausal, Age at Menopause 43 Date of Last Colonoscopy Sexually Active? Y Menses Monthly N Age of first menstrual cycle 15 Date of Last Pap Smear 02/03/2023 Sexual Problems? N LMP Approximate N Obstetrics History GPAL:G 2 P 2 0 0 2 Type Value Full Term 2 Living 2 Total 2 Past Encounters Encounter ID Performer Location Encounter Start Date Encounter Closed Date Diagnosis/Indication Diagnosis SNOMED-CT Code Diagnosis ICD10 Code Diagnosis Note [id number] Roc Winters MD [facility] [address] [address] 12/01/2019 09:55:42 12/01/2019 11:38:03 Gynecologic examination 30885692 Z01.419 This patient is here for her annual exam. A thorough history was taken. A physical exam was performed. Age appropriat e routine health screening was ordered, performed, and discussed. Recommende d testing was ordered. She was asked to follow up in one year. She will be informed of any test results. Mammogram - [ordered ] Colonoscop y - [ orderd] Bone Density - [n/a ] Cholestero l - [ done] Pap - today Smoking cessation - chantix [id number] Diamond Caba MD [facility] [address],[facility] [address] 12/13/2020 11:52:43 12/13/2020 15:09:46 Family history of cancer of colon 782643529 Z80.0 Fatigue 90633747 R53.83 Tobacco user 052335707 Z 72.0 Gynecologi c examination 73334398 Z01.419 [id number] Diamond Caba MD [facility] [address],[facility] [address] 01/19/2022 14:57:02 01/20/2022 15:10:57 Gynecologic examination 17534027 Z01.419 Z11.51 Family his tory of cancer of colon 918041472 Z80.0 Tobacco user 611178487 Z 72.0 [id number] TODD Callejas [facility] [address] [address] 01/22/2023 09:27:34 01/22/2023 09:57:19 Gynecologic examination 51984737 Z01.419 WWEpostmen opausalpap updated todaySTI testing declinedma mmogram order givenjuancho ARTHUR (PCP)desi schaffer PCP todayRTC in 1 yr or sooner if needed Take Calcium with Vitamin D daily. Do monthly self breast exams. It is advised to get annual flu shot in the fall and she could obtain at [facility] or [facility] take care clinic. If you haven't received the Tdap vaccine in the last 10 years you should obtain one as well. Have mammogram yearly, bone density every 2-3 years and colonoscop y every 5-10 years depending on findings and history. Engage in daily exercise of low impact aerobic exercise 45-60 minutes 4-5 times weekly. Avoid tobacco and illicit drugs as well as using moderation with alcohol intake less than 1-2 8 oz beverages daily. This lifestyle behavior pattern will lead to less health conditions and longer life span. If BMI greater than 25 dietary consult advised. Questions have been answered. Patient appears to understand instructio ns, but if you have any further questions call or respond to this email Screening for malignant neoplasm of breast 998099062 Z12.39 [id number] TODD Callejas [facility] [address] [address] 04/03/2024 14:09:23 04/03/2024 14:55:13 Gynecologic examination 22975315 Z01.419 WWEpostmen opausalPap - done today per pt preference STI screen - declinedMa mmogram - UTDColon cancer screening - referral placedDexa - [facility] in 1 yr or sooner if needed Do monthly self breast exams.It is advised to get annual flu shot in the fall and she could obtain at local pharmacy. If you haven't received the Tdap vaccine in the last 10 years you should obtain one as well.Have mammogram yearly, bone density every 2-3 years and stay up to date on colon cancer screening. Engage in regular exercise. Avoid tobacco and illicit drugs. This lifestyle behavior pattern will lead to less health conditions and longer life span. If BMI greater than 25 dietary consult advised.Qu estions have been answered. Screening for malignant neoplasm of colon 653567069 Z12.11 Health Concerns Section Related Observation LastModified by Organization Detai ls LastModified Time None Recorded Concern Status LastModified by Organization Details LastModified Time None Recorded Advance Directives Directive N: Payers Encounter Date Sequence Insurance Name Policy Number Policy Brown Covered Member ID Brown Member ID Guarantor Name 12/01/2019 1 [facility] ([facility]) [id number] Denita Jorge [id number] Simran Jorge 12/13/2020 1 [facility] [id number] Denita Jorge [id number] Simran Jorge 01/19/2022 1 [facility] (O) [id number] Denita Jorge [id number] Simran Jorge 01/22/2023 1 [facility] ([facility] [id number] Denita Clarkna [id number] Simran Walters Ania 04/03/2024 1 [facility] [id number] Simran Xiaodominique [id number] Simran Jorge Notes Date Note Type Note Provider Name and Address Organization Details Recorded Time 0 text/html Annual GYNReported bypatient.History:no gynecologic complaints Urinary symptoms:No hematuria; No incontinence Vulva:No genital lesion Vagina:Normal vaginal discharge Breast:No breast pain; No breast lump; No nipple discharge Sexual complaints:No sexual complaints;Pain during intercourse; For months, no bleeding Menopausal Symptoms:No menopausal symptoms; Normal vaginal lubrication Psychological symptoms:No depression;Anxiety Preventive measures:Encourage self breast examination Roc Winters MD 2016 [address], [place], [address], [facility] 12/01/2019 10:49:40 1 text/html Patient is a 50yo who presents for an annual exam. Has had COVID vaccine. also had breakthrough case. Smoker. 2017 ASCUS pos HPV, normal since then. last pap-11/2019 NILM mammo-2019? colonoscopy-none- did cologuard last year, but has family history of colon cancer dexa-none menopause-44yo sexually active-y seatbelts-y exercise-y depression-denies domestic violence-denies tobacco-y, wants to use chantix again concerns-fatigue, since before covid, for a couple years, getting worse. hasn't seen PCP in a couple years. Diamond Caba MD [address], [place], [address], [facility] 12/13/2020 14:43:56 2 text/html Patient is a 52yo who presents for an annual exam. Diagnosed with COPD this year. Down to 3-4 cigarettes per day. last pap- 11/2020 NILM, abnormal in 2017 mammo-06/2021 colonoscopy-cologuard 2-3 years ago. has family history of colon cancer, though. dexa-none menopause-y sexually active-y seatbelts-y exercise-y depression-denies domestic violence-denies tobacco-y, above concerns- Diamond Caba MD [address], [place], [address], [facility] 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.Menopausal Symptoms:no menopausal symptoms; normal vaginal lubrication Vaginal Bleeding:history of menopause having occurred; no history of post menopausal bleeding Urinary Symptoms:no hematuria; no incontinence; no nocturia; no urinary frequency Vulva:no genital lesion; no vulvar atrophy Vagina:normal vaginal discharge; no vaginal atrophy Breast:no breast lump; no nipple discharge; no breast pain Sexual Complaints:no sexual complaints Psychological Symptoms:no depression; no anxiety Preventive Measures:encourage regular mammograms starting age 40; encourage self breast examination; encourage regular exercise; encourage no tobacco use; needs to schedule mammogram; history of recent colonoscopyNotes:hx of abnormal pap 2017normal paps since, /2021mammogram last olonoscopy 2-3 yrs ago occasional tobacco smoker, has COPDseeing her PCP today TODD Callejas [address], [place], [address], [facility] 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 Post-MenopausalReported bypatient.Menopausal Symptoms:no menopausal symptoms; normal vaginal lubrication Vaginal Bleeding:history of menopause having occurred; no history of post menopausal bleeding Urinary Symptoms:no hematuria; no incontinence; no nocturia; no urinary frequency Vulva:no genital lesion; no vulvar atrophy Vagina:normal vaginal discharge; no vaginal atrophy Breast:no breast lump; no nipple discharge; no breast pain Sexual Complaints:no sexual complaints Psychological Symptoms:no depression; no anxiety Preventive Measures:encourage regular mammograms starting age 40; encourage self breast examination; encourage regular exercise; encourage no tobacco useNotes:54yo wwepostmenopausallast pap 2022 : nilm, HPV (-)normal paps /2021h/o abnormal pap last 2017mammogram UTD 4dexa - has order from PCPcolonoscopy - needs referral TODD Callejas [address], [place], [address], [facility] 04/04/2024 09:04:41 OBGyn Episode Ob Episode Information Episode Created Date Number of Fetuses Patient Bloodtype Patient rh Status Prepregnancy Weight lbs Domestic Partner Domestic Partner Phone Father Name [facility] Nurse Status 12/01/19 1 CLOSED Fetus Data First Name Last Name Admitted to NICU Weight (g) Sex Living Outcome Pediatric Complications Fetus ID Race Codes Race Delivery Type [id number] Vaginal Delivery Melvin Calculation Initial Melvin Date Initial Exam Date Initial Exam Provider Initial Ultrasound Date Last Menstrual Period Date Ultra Sound Weeks Gestation 0 Eighteen To Twenty Week Melvin Update Ultra Sound Date Fundal Height At Umbil Quickening Date Ultra Sound Latest Weeks Gestation Final Melvin Confirmed By Final Melvin Confirmed Date Final Melvin Date Ultra Sound Latest Days Gestation 0 0 Menstrual History Last Menstrual Date Menses Monthly On Bcp Conception Prior Menses Frequency Hcg Plus Date Menarche Onset Age Delivery Information Delivery Date Delivery Type Labor Anesthesia Weeks Gestation Incision Type Labor Labor Length Hrs Delivered By Post Complications Tubal Sterilization Discharge Date Comments 9 Discharge Information Feeding Method Contraceptive Method Maternal HG B and HCT Levels Ob Episode Information Episode Created Date Number of Fetuses Patient Bloodtype Patient rh Status Prepregnancy Weight lbs Domestic Partner Domestic Partner Phone Father Name [facility] Nurse Status 12/01/19 1 CLOSED Fetus Data First Name Last Name Admitted to NICU Weight (g) Sex Living Outcome Pediatric Complications Fetus ID Race Codes Race Delivery Type [id number] Vaginal Delivery Melvin Calculation Initial Melvin Date Initial Exam Date Initial Exam Provider Initial Ultrasound Date Last Menstrual Period Date Ultra Sound Weeks Gestation 0 Eighteen To Twenty Week Melvin Update Ultra Sound Date Fundal Height At Umbil Quickening Date Ultra Sound Latest Weeks Gestation Final Melvin Confirmed By Final Melvin Confirmed Date Final Melvin Date Ultra Sound Latest Days Gestation 0 0 Menstrual History Last Menstrual Date Menses Monthly On Bcp Conception Prior Menses Frequency Hcg Plus Date Menarche Onset Age Delivery Information Delivery Date Delivery Type Labor Anesthesia Weeks Gestation Incision Type Labor Labor Length Hrs Delivered By Post Complications Tubal Sterilization Discharge Date Comments 2 Discharge Information Feeding Method Contraceptive Method Maternal HG B and HCT Levels
--- OUTSIDE RECORDS SUMMARY | 2024-07-24 00:35 | XMS_ITS | Clinical Summary ---
Author Organization [facility] Address [address] [place] [address] Phone Care Team Providers Care Group Contract Analyst Name Role Phone Kike Eric MD Primary Care Provider [phone] Allergies No known active allergies Medications No known medications Active Problems Problem Noted Date Diagnosed Date Cyst of subcutaneous tissue 04/22/2011 Overview (04/22/2011): Left shoulder Social History Tobacco Use Types Packs/Day Years Used Date Smoking Tobacco: Every Day Cigarettes Alcohol Use Standard Drinks/Week Comments Yes 0 (1 standard drink = 0.6 oz pur e alcohol) 2-3/week Comments Unknown Sex and Gender Information Value Date Recorded Sex Assigned at Not on file Legal Sex Female 6:07 AM INJECTION MOULDING MACHINE OPERATOR Gender Identity Not on file Sexual Orientation Not on file Last Filed Vital Signs Vital Sign Reading Time Taken Comments Blood Pressure 110/69 04/22/2011 10:40 AM INJECTION MOULDING MACHINE OPERATOR Pulse 65 04/22/2011 10:40 AM INJECTION MOULDING MACHINE OPERATOR Temperature - - Respiratory Rate 16 04/22/2011 10:40 AM INJECTION MOULDING MACHINE OPERATOR Oxygen Saturation 99% 04/22/2011 10:40 AM INJECTION MOULDING MACHINE OPERATOR Inhaled Oxygen Concentration - - Weight 54.4 kg (120 lb) 04/20/2011 11:44 AM INJECTION MOULDING MACHINE OPERATOR Height 170.2 cm (5' 7) 04/20/2011 11:44 AM INJECTION MOULDING MACHINE OPERATOR Body Mass Index 18.79 04/20/2011 11:44 AM INJECTION MOULDING MACHINE OPERATOR Plan of Treatment Health Maintenance Due Date Last Done Comments DTAP/TDAP/TD VACCINES (1 - Tdap) 01/17/1987 HEPATITIS B VACCINES (1 of 3 - 19+ 3-dose series) 04/1986 HPV/Cotest (21-29) 01/17/1989 CERVICAL CANCER SCREENING 01/17/1998 HPV/Cotest (30-65) 01/17/1998 PAP SMEAR 01/17/1998 BREAST CANCER SCREENING 2008 COLORECTAL SCREENING 01/17/2013 Colorectal Cancer Screening 01/17/2013 FIT-DNA Q 3 years 01/17/2013 FIT/FOBT Q 1 year 01/17/2013 Flex Sig/CT Colonography Q 5 years 01/17/2013 ZOSTER VACCINE (1 of 2) 01/17/2018 INFLUENZA VACCINE (#1) 2023 Insurance PPO Advance Directives For more information, please contact: [phone] * Full Code (Latest Code Status on File) Date Activated Date Inactivated Comments 04/22/2011 9:31 AM 04/22/2011 12:50 PM Care Teams Group Contract Analyst Relationship Specialty Start Date End Date Kike Eric MD PCP - General Family Practice 04/21/11
--- OUTSIDE RECORDS SUMMARY | 2024-07-24 00:35 | XMS_ITS | Referral Summary ---
Author Organization [facility] Address [address] [place] [address] Care Team Providers Care Centrifuge Operator Name Role Phone Kike Eric MD Primary Care Prov ider Allergies No known active allergies Medications albuterol HFA (PROVENTIL HFA,VENTOLIN HFA,PROAIR HFA) 90 mcg/actuation inhalerIndicati ons:Chronic Obstructive Pulmonary Disease Inhale 2 puffs every 4 (four) hours as needed for wheezing 1 each 12/21/19 22 Active inhalational spacing device spacer Use spacer with asthma inhaler as instructed. 1 each 12/21/19 22 Active Trelegy Ellipta 100-62.5-25 mcg inhaler 1 puff daily 01/26/20 22 Active ergocalciferol (VITAMIN D) 50,000 unit capsule ergocalciferol (vitamin D2) 1,250 mcg (50,000 unit) capsule Active nystatin 100,000 unit/mL suspension 1 tsp to swish and spit out 4x daily for 10 days. 60 mL 1 07/02/19 23 Active Active Problems Problem Noted Date Diagnosed Date COPD exacerbation Social History Tobacco Use Types Packs/Day Years Used Date Smoking Tobacco: Every Day Cigarettes 0.3 40 Tobacco Cessation:Ready to Q uit: Not Asked; Counseling Given: Not Answered Personal Safety Answer Date Recorded Getting School Help Needed Not on file 02/20 Comments Unknown Sex and Gender Information Value Date Recorded Sex Assigned at Not on file Legal Sex Female 5:43 PM CDT Gender Identity Not on file Sexual Orientation Not on file Last Filed Vital Signs Vital Sign Reading Time Taken Comments Blood Pressure 109/60 07/01/2022 3:40 PM CDT Pulse 65 07/01/2022 3:40 PM CDT Temperature 37.5 C (99.5 F) 07/01/2022 3:40 PM CDT Respiratory Rate 18 07/01/2022 3:40 PM CDT Oxygen Saturation 96% 07/01/2022 3:40 PM CDT Inhaled Oxygen Concentration - - Weight 53.3 kg (117 lb 9.6 oz) 07/01/2022 3:40 P M CDT Height 170.2 cm (5' 7) 07/01/2022 3:40 PM CDT Body Mass Index 18.42 07/01/2022 3:40 PM CDT Plan of Treatment Not on file Insurance [facility] [employer] Care Teams Centrifuge Operator Relationship Specialty Start Date End Date Kike Eric MD [address] [place] [address] PCP - General Family Medicine 12/20/21
--- OUTSIDE RECORDS SUMMARY | 2024-07-24 00:35 | XMS_ITS | CONTINUITY OF CARE DOCUMENT ---
Author Name josemanuel brandonsindhu Address Unknown Organization [facility] Address [address] [place] [address] Phone [phone] Care Team Providers Care Cementing Bulk Material Operator Name Role Phone Guillermina JEWELL, Kaleb Unavailable [phone] TRIXIE ABREU MD Unavailable TRIXIE ABREU MD Unavailable [phone] PROBLEMS Condition Status Date Provider Notes Cardiology examination active Kaleb Sarmiento MD CHEST PAIN active Kaleb Sarmiento MD Shortness of breath (SOB) active Kaleb salazar MD COPD active Kaleb Sarmiento MD ENCOUNTERS Date Type Provider Location Encounter Diag nosis - In-person encounter Office Visit Kaleb Sarmiento MD [facility] - In-person encounter Office Visit Kaleb Sarmiento MD [facility] - In-person encounter Office Visit Kaleb Sarmiento MD [facility] Cardiology examinationCHEST PAINShortness of breath (SOB)COPD VITAL SIGNS Date Observation Value Provider Body Mass Index (Ratio) 21.14 kg/m2 Manoj Sarmiento MD blood pressure, diastolic 73 mm[Hg] Jemma Rodríguez blood pressure, systolic 103 mm[Hg] Kelly Rodríguez oxygen saturation, oximetry 98 % Faustina Rodríguez pulse rate 62 /min Faustina Rodríguez respiratory rate E&M 12 /min Faustina Rodríguez weight E&M 131 [lb_av] Faustina Rodríguez height E&M 66 [in_i] Faustina Rodríguez blood pressure, cuff size regular Jemma Rodríguez Body Mass Index (Ratio) 19.04 kg/m2 Manoj Sarmiento MD blood pressure, cuff size regular Cameron rret blood pressure, diastolic 75 mm[Hg] Ja rret blood pressure, systolic 99 mm[Hg] Jar ret pulse rate 61 /min Zak respiratory rate E&M 14 /min Zak oxygen saturation, oximetry 100 % Zak weight E&M 118 [lb_av] Zak height E&M 66 [in_i] Zak Body Mass Index (Ratio) 19.37 kg/m2 Manoj Sarmiento MD blood pressure, diastolic 73 mm[Hg] Elif nkLogic blood pressure, systolic 103 mm[Hg] Enedelia kLogic blood pressure, cuff size regular Cameron rret blood pressure, diastolic 73 mm[Hg] Ja rret blood pressure, systolic 103 mm[Hg] Jar ret pulse rate 66 /min Zak oxygen saturation, oximetry 94 % Zak height E&M 66 [in_i] Zak respiratory rate E&M 12 /min Zak weight E&M 120 [lb_av] Zak y ALLERGIES No Known Drug Allergies HISTORY OF MEDICATION USE Medication Status Instructions Dates Provider Indications Com ments furosemide 20 mg tablet active Take 1 tablet by mouth once a day [facility] Trelegy Ellipta 100-62.5-25 mcg blister with device active Inhale 1 puff as directed once a day [facility] alprazolam 0.25 mg tablet active TAKE 1 TABLET BY MOUTH ONCE DAILY NEEDED [facility] SOCIAL HISTORY Date Observation Value Provider smoking history, total pack/day 1/2 Kaleb Sarmiento MD cigarette use yes Kaleb Sarmiento MD smoking status Former smoker Kaleb brown MD smoking history, total pack/day 1/2 Kaleb Sarmiento MD cigarette use yes Kaleb Sarmiento MD smoking status Former smoker Kaleb brown MD smoking history, total pack/day 1/[address] [facility] cigarette use yes Zak [facility] smoking status Current every day smoker J [facility] INSURANCE PROVIDERS Payer name Policy type / Coverage type [place] [employer] party ID [facility] Commercial insurance co [facility] [id number] ADVANCE DIRECTIVES Name Date DISCUSSED - NO DECISION MADE TREATMENT PLAN Date Name Performer Cardiology Kaleb Sarmiento MD Cardiology Kaleb Sarmiento MD Cardiology Kaleb Sarmiento MD Cardiology Kaleb Sarmiento MD Cardiology Kaleb Sarmiento MD Cardiology Kaleb Sarmiento MD Cardiology Kaleb Sarmiento MD Cardiology Kaleb Sarmiento MD Cardiology:Normal cath Kaleb alberts MD HISTORY OF PROCEDURES Procedure Date Procedure Name Provider Procedure Notes S tatus EKG Kaleb Sarmiento MD complete d EKG Kaleb Sarmiento MD complete d
--- OUTSIDE RECORDS SUMMARY | 2024-07-24 00:35 | XMS_ITS | Clinical Summary ---
Author Organization [facility] Address [address] [place] [address] Care Team Providers Care Oyster Fisherman Name Role Phone Kike Eric MD Primary [...] on file Sexual Orientation Not on file Obstetrics History Last Filed Vital Signs Vital Sign Reading [...] 07/01/2022 3:40 PM CDT Plan of Treatment Health Maintenance Due Date Last Done Comments Breast Cancer Screening-Mammogram 1968 Cervical Cancer Screening 1968 Colon Cancer Screening-Colonoscopy 1968 Depression Screening 1968 Hepatitis C Screening 1968 DTaP/Tdap/Td Vaccine (1 - Tdap) 01/17/1979 Hepatitis B Screening 01/17/1986 Regular Well Visit/Exam 18-64 01/17/1986 Pneumococcal vaccine <65 (1 of 2 - PCV) 01/17/1987 Zoster Vaccine (1 of 2) 01/17/2018 Covid-19 Vaccine (3 - 2023-2 5 season) 2023 06/02/2020, 05/16/2020 Influenza Vaccine (Season Ended) 2024 10/27/2017, 12/19/2016, 10/31/2015, Additional history exists Insurance [facility] [employer] [place] [id number] [facility] Care Teams Oyster Fisherman Relationship Specialty Start Date End Date Kike Eric MD [address] [place] [address] PCP - General Family Medicine 12/20/21
[2024-07-24 08:30] VITALS: BP 109/70; PULSE 72; RESP 16; TEMP 36.1; O2SAT 100; BMI 20.5
--- NOTE | 2024-07-24 08:47 | P.PNAN_ITS ---
Anes - Initial Pre Proc Eval Procedure: Operation Date: 07/24/24 10:00 Proposed Procedures p Screening Colonoscopy - Devon Her MD Date/Time: 07/24/24 08:47 Surgeon: Devon Her MD Pre Op Diagnosis: screening Patient Data Age: 54 Gender: F Height: 1.68 m Weight: 57.7 kg Last Vital Signs Temp 36.1 C L 07/24/24 08:30 Pulse 72 07/24/24 08:30 Resp 16 07/24/24 08:30 BP 109/70 07/24/24 08:30 Pulse Ox 100 07/24/24 08:30 O2 Del Method Room Air 07/24/24 08:30 Allergies Allergy/AdvReac Type Severity Reaction Status Date / Time No Known Allergies Allergy Verified 07/24/24 08:37 Home Medications ?Medication ?Instructions ?Recorded ?Confirmed ?Type alprazolam 0.25 mg tablet 0.25 mg PO DAILY PRN anxiety #60 03/25/23 07/12/24 Rx tabs furosemide 20 mg tablet 20 mg PO QAM PRN edema #20 tabs 06/01/23 07/12/24 Rx fluticasone fur. 100 mcg-umeclid See Rx Instructions .Route 03/31/24 07/24/24 Rx 62.5 mcg-vilant 25 mcg .COMPLEX #180 grams inhalat.powder (Trelegy Ellipta) albuterol sulfate 90 mcg/actuation 2 inh inhalation Q4H PRN shortness 05/29/24 07/12/24 Rx aerosol inhaler of breath or wheezing #8.5 grams Patient hx anesthesia problems: none Family hx anesthesia problems: none Results Review: All pre-operative results and documents have been reviewed as part of the pre- operative evaluation. [facility] Surgical History Surgical History History of tubal ligation History of breast implant Family History Family History Father Hypertension Patient's father is in good health Family history of coronary artery disease Mother Hypertension Social History Social History Smoking packs per day: 1 Smoking cigarettes per day: 20.0 Years smoked: 35 Smoking pack-years: 35.00 Smoking status: Former smoker Tobacco type: cigarettes Second hand tobacco smoke exposure: No Smoking end date: 04/15/23 Alcohol intake: current Alcohol use details: Socially Substance use: never Substance use type: does not use Living arrangements: with family Occupation/Education: retired Gender identity (if verbalized by the patient): Female Sexual Orientation (if Verbalized by the Patient): Straight or Heterosexual Spiritual care concerns: No Agree to blood products: Yes Anes - Eval Final PreProcedure Day of Procedure 07/24/24 08:47 Patient weight: normal Heart: regular rate and rhythm Lungs: decreased breath sounds Airway: Mallampati scale class II Neurological: alert and oriented Last oral intake: >/= 8 hours ASA classification: III Emergent: no Anesthetic plan: proceed Anesthesia type and monitoring: general GIVS and standard monitoring Results Review: All pre-operative results and documents have been reviewed as part of the pre-operative evaluation. Informed Consent: The patient's anesthetic plan and its attendant risks and benefits were discussed with the patient/family/POA. Questions were solicited and answers provided to the satisfaction of the patient/family/POA.
[2024-07-24] MEDS: LACTATED RINGERS 1,000 ML 150 ML IV CONT (08:56)
--- NOTE | 2024-07-24 09:04 | PM.IMHP ---
H&P: HPI History of Present Illness Date/Time: 07/24/24 09:04 Chief Complaint: Screening colonoscopy Narrative: This is the patient's first colonoscopy. There are no GI symptoms and there is no family history of colorectal cancer. Review of Systems Review of Systems: All systems reviewed & are unremarkable except as noted in HPI and below PMFSH Surgical History Surgical History History of tubal ligation History of breast implant Family History Family History Father Hypertension Patient's father is in good health Family history of coronary artery disease Mother Hypertension Social History Social History Smoking packs per day: 1 Smoking cigarettes per day: 20.0 Years smoked: 35 Smoking pack-years: 35.00 Smoking status: Former smoker Tobacco type: cigarettes Second hand tobacco smoke exposure: No Smoking end date: 04/15/23 Alcohol intake: current Alcohol use details: Socially Substance use: never Substance use type: does not use Living arrangements: with family Occupation/Education: retired Gender identity (if verbalized by the patient): Female Sexual Orientation (if Verbalized by the Patient): Straight or Heterosexual Spiritual care concerns: No Agree to blood products: Yes Meds Home Medications and Allergies Home Medications ?Medication ?Instructions ?Recorded ?Confirmed ?Type alprazolam 0.25 mg tablet 0.25 mg PO DAILY PRN anxiety #60 03/25/23 07/12/24 Rx tabs furosemide 20 mg tablet 20 mg PO QAM PRN edema #20 tabs 06/01/23 07/12/24 Rx fluticasone fur. 100 mcg-umeclid See Rx Instructions .Route 03/31/24 07/24/24 Rx 62.5 mcg-vilant 25 mcg .COMPLEX #180 grams inhalat.powder (Trelegy Ellipta) albuterol sulfate 90 mcg/actuation 2 inh inhalation Q4H PRN shortness 05/29/24 07/12/24 Rx aerosol inhaler of breath or wheezing #8.5 grams Allergies Allergy/AdvReac Type Severity Reaction Status Date / Time No Known Allergies Allergy Verified 07/24/24 08:37 Vital Signs Vital Signs - 24 hr 07/24/24 08:30 Temperature 97.0 F L Pulse Rate 72 Respiratory Rate 16 Blood Pressure 109/70 Pulse Oximetry 100 Oxygen Delivery Room Air Exam Const: General: cooperative and healthy appearing Resp: Effort & Inspection: normal respiratory effort and able to speak in complete sentences Auscultation: clear to auscultation bilaterally Cardio: Rate: regular rate Rhythm: regular rhythm GI: Inspection: normal to inspection GI Palp: No No hepatosplenomegaly present Auscultation: normal bowel sounds Rectal Exam: deferred Skin: General skin exam: normal color Psych: Appearance: grossly normal Mental Status: mental status grossly normal Assessment and Plan Assessment and plan (1) Colon cancer screening: Code(s): Z12.11 - Encounter for screening for malignant neoplasm of colon Status: Acute Assessment and Plan: The patient is deemed a good candidate for the procedure. Consent signed. Will proceed.
--- NOTE | 2024-07-24 09:26 | S_PTH ---
PATIENT: Simran Jorge LOC: [facility] U#:[id number] AGE/SX: 54/F ROOM: RE07/24/[address]: Devon Her MD : 1970 BED: DIS: 07/24/2024 SPEC #: [id number] RECD: 07/24/24 10:15 STATUS: JANE REQ #: [id number] RICK: 07/24/24 09:[address]: Devon Her DEPT: [facility] Surgical RECD BY: Gia Anderson ENTERED: 07/24/24 10:15 SP TYPE: Surgical OTHR DR: Kike Eric MD Tissues: A - Colon Polypectomy Procedures: Hematoxylin and Eosin Stain Gross and Microscopic Level 4
[2024-07-24 09:28] VITALS: BP 108/59; PULSE 76; RESP 18; O2SAT 95
[2024-07-24 09:38] VITALS: BP 89/55; PULSE 74; RESP 18; O2SAT 95
[2024-07-24 09:48] VITALS: BP 94/53; PULSE 73; RESP 26; O2SAT 94
== END 2024-07-24 10:06 | disposition home or self-care (01) ==
PROVIDERS: PCP Family Medicine Adolescent Medicine; Referring Provider Nurse Practitioner; Visit Provider Internal Medicine Gastroenterology
PROC: 0DJD8ZZ Inspection of Lower Intestinal Tract, Via Natural or Artificial Opening Endoscopic (ICD-10-PCS; CPT 45378; principal; 2024-07-24 10:00)
DX: Z12.11 Encounter for screening for malignant neoplasm of colon (principal); D12.5 Benign neoplasm of sigmoid colon; Q27.33 Arteriovenous malformation of digestive system vessel; Z87.891 Personal history of nicotine dependence
CPT/HCPCS: 45385; 88305; J2003; J2704; J7120

== ENCOUNTER 2024-08-31 10:23 | Outpatient (CLI) | payer OTHER, SELFPAY ==
--- NOTE | ~2024-08-31 | CT_ITS ---
CT Scan of the Chest without Contrast: Clinical Indication: Lung cancer screening, nicotine dependence Technique: Contiguous sections were acquired throughout the chest without intravenous contrast. Dose reduction technique was used on this scan by utilizing automated exposure control and iterative recon struction technique. The dose-length product (DLP) was 39.11 mGy-cm. COMPARISON: 08/27/2023 Findings: There is no evidence of any significant mediastinal, hilar or axillary lymphadenopathy. The mediastin al soft tissues appear normal. There is no evidence of pleural or pericardial effusion. The lungs are clear. No pulmonary nodules or infiltrates are noted. Moderate to advanced emphysema. Images through the upper abdomen reveal no abnormalities. T11 compression deformity is present, new f rom prior exam. Impression: Lung RADS 1: Negative. 12 month follow-up screening CT advised. Moderate to advanced emphysema. T11 compression deformity, new from prior exam. Reviewed, dictated and finalized at [facility]. Impression: Lung RADS 1: Negative. 12 month follow-up screening CT advised. Moderate to advanced emphysema. T11 compression deformity, new from prior exam.
== END 2024-08-31 10:24 | disposition home or self-care (01) ==
LOC: MICIMG 10:24
PROVIDERS: PCP Family Medicine Adolescent Medicine; Visit Provider Physician Assistant
DX: Z12.2 Encounter for screening for malignant neoplasm of respiratory organs (principal); Z87.891 Personal history of nicotine dependence
CPT/HCPCS: 71271

== ENCOUNTER 2024-11-23 15:25 | Outpatient (CLI) | payer OTHER, SELFPAY ==
--- NOTE | ~2024-11-23 | DEXA_ITS ---
Bone Density Report Name: RAMOS VILLELA Age: 54 Sex: Female Ethnicity: White Date of : 1970 Indication: postmenopausal; screening for osteoporosis; height loss; asthma or emphysema; Referring Provider: SHILO CONTE Study: Bone densitometry was performed. Exam Date: November 23, 2024 Accession number: [id number] Bone Density: Region BMD T-score Z-score Classification AP Spine(L1-L4) 0.581 -4.2 -3.0 Osteoporosis Femoral Neck (Left) 0.445 -3.6 -2.5 Osteoporosis Total Hip (Left) 0.528 -3.4 -2.6 Osteoporosis Femoral Neck (Right) 0.387 -4.2 -3.0 Osteoporosis Total Hip (Right) 0.517 -3.5 -2.7 Osteoporosis Total Hip Mean 0.522 -3.5 -2.7 Osteoporosis World Health Organization criteria for BMD impression classify patients as: Normal (T-score at or above -1.0), Osteopenia (T-score between -1.0 and -2.5), or Osteoporosis (T-score at or below -2.5). 10-year Fracture Risk: FRAX not reported because: Some T-score for Spine Total or Hip Total or Femoral Neck at or below -2.5 Clinical Information Provided by Patient: Has the following medical conditions: Asthma or Emphysema Patient maximum height was 67 Menopause Age: 44 No regular weight bearing exercise Does not regularly consume dairy products Drinks caffeinated beverages Onset of menses at age 15 Number of children 2 Impression: The patient has osteoporosis, based on the Total Spine T-score. Discussion: HIGH RISK OF FRACTURE. BONE DENSITY IS UNDESIRABLY LOW AT ONE OR MORE SKELETAL SITES, CONSISTENT WITH OSTEOPOROSIS. ALSO, BONE DENSITY IS LOWER THAN EXPECTED FOR AGE AND SEX AT ONE OR MORE SKELETAL SITES; RECOMMEND A DILIGENT SEARCH FOR SECONDARY CAUSES OF BONE LOSS. This patient's lowest T-score meets the World Health Organization's (WHO) criteria for osteoporosis at one or more sites (T-score -2.5 or below). In untreated patients, the risk of osteoporotic fracture increases approximately two-fold for each 1.0 SD decrease in T-score. Low bone density is not the only risk factor for fracture; also consider factors such as patient's age, frailty or poor health, risk of falling, risk of injury, previous osteoporotic fracture, family history of osteoporosis, cigarette smoking, low body weight, etc. Not everyone with low bone mineral density has osteoporosis; osteomalacia and other metabolic bone disorders should also be considered. Patients who have osteoporosis should be evaluated for specific diseases and conditions (secondary causes) that may cause or contribute to bone loss. The [place] [employer] (AACE) and National Osteoporosis Foundation (NOF) recommend pharmacologic intervention for all postmenopausal women whose T-score is in this range. Also, this patient's bone mineral density is below the range considered normal for healthy age-, sex-, and race-matched controls at least one site (Z-score -2.0 or below). This warrants careful evaluation for diseases and conditions that may contribute to accelerated bone loss. The patient should follow a healthful lifestyle (good nutrition with adequate calcium and vitamin D, and appropriate weight-bearing exercise). Follow-Up: Consider a repeat BMD and Vertebral Fracture Assessment (VFA) exam in 2 years or sooner if medically necessary, to reassess this patient's status. Reported by: MADYSON on 11/23/2024 3:54:00 PM. Reviewed, dictated and finalized at location A.
== END 2024-11-23 15:26 | disposition home or self-care (01) ==
LOC: MICIMG 15:26
PROVIDERS: PCP Family Medicine Adolescent Medicine; Visit Provider Nurse Practitioner Family
DX: M81.0 Age-related osteoporosis without current pathological fracture (principal); Z78.0 Asymptomatic menopausal state; F17.210 Nicotine dependence, cigarettes, uncomplicated; Z91.89 Other specified personal risk factors, not elsewhere classified
CPT/HCPCS: 77080